=== PATIENT | female | born 2000 | race African-American/Black ===

== ENCOUNTER 2024-07-11 16:44 | Emergency (ER) | payer OTHER, SELFPAY ==
[2024-07-11 16:51] VITALS: BP 116/69
--- NOTE | 2024-07-11 17:45 | ED.GENMED ---
History of Present Illness
General
Chief Complaint: Foreign Body Removal
Source: patient and family (Patients Fiance at bedside)
Exam Limitations: none
Time Seen by Provider: 07/11/24 17:17
Nursing documentation reviewed up to this point in time: agreed with
History of Present Illness
History of Present Illness:
Patient is a 23-year-old female presenting to the emergency department for evaluation of possible vaginal foreign body. Patient states that she believes that she inserted a tampon this morning at 11 AM that she started her period. However�at 3 PM
when she went to change her tampon she was able to find the 1 that she previously placed. Patient did insert a new tampon at that time. Patient came to the emergency department for further evaluation.
Patient denies any abnormal vaginal discharge. No abdominal pain.
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
No other concerns today.
Review of Systems
Review of Systems
Allergies reviewed?: Yes
All Other Systems: ROS reviewed and negative except as documented in HPI and ROS
Phy Exam
Physical Exam
Physical Exam:
Vitals: Patient's vital signs are stable. Afebrile
General: Patient is well appearing, no acute distress
Skin: Warm and dry, no rashes or lesions
Head: Normocephalic, atraumatic
Throat: Protecting airway
Neck: Normal ROM, no cervical spine tenderness
Cardiac: Regular rate
Pulm: No apparent respiratory distress
Abdomen: Abdomen soft and nondistended
Pelvic: External genitalia normal appearing without lesions, ulcerations, or adenopathy. Speculum exam without any visualized foreign body. Bright red blood in vaginal vault. No lesions or ulcerations to vaginal wall. Normal-appearing cervix
with blood coming from os. No cervical motion tenderness. Bimanual exam without any palpable foreign bodies or abnormalities noted
Extremities: No evidence of cyanosis or edema
Neuro: Grossly intact
Psychiatric: Normal affect.
Course
Vital Signs
Initial and Last Documented VS:
Initial Vital Signs
Temp Pulse Resp BP Pulse Ox
98.0 F 75 16 116/69 96
07/11/24 16:51 07/11/24 16:51 07/11/24 16:51 07/11/24 16:51 07/11/24 16:51
Last Documented Vital Signs
Temp Pulse Resp BP Pulse Ox
98.0 F 88 18 120/70 98
07/11/24 16:51 07/11/24 19:21 07/11/24 19:21 07/11/24 19:21 07/11/24 19:21
MDM/Problems Addressed
Differential Diagnosis Includes:
Not limited to: Vaginal foreign body, etc.
MDM/Problems Addressed:
23-year-old female presents with concerns of retained tampon in vagina since this morning. She is unsure if she actually placed tampon this morning. No fevers, chills, abnormal vaginal discharge. No dizziness, lightheadedness, or shortness of
breath. Patient with stable vital signs on arrival. She is afebrile. On exam�patient is very well-appearing, in no apparent distress. She is conversational and nontoxic. Abdomen soft and nontender. Speculum exam performed without any
visualized foreign body or tampon. bright red blood visualized from cervical os and in vaginal vault. No other abnormal findings. Bimanual exam was also performed without any palpable foreign bodies. I suspect at this point that either tampon was
never inserted or it fell out without patient knowing. Patient does already have appointment scheduled with [employer]ATOR tomorrow for removal of Nexplanon. She will follow-up with them tomorrow for repeat pelvic exam if needed. Return precautions
discussed. Case discussed with attending physician. Patient stable for discharge.
Chronic conditions affecting care:
N/A
Acute Exacerbation and/or Progression of Chronic Illness:
N/A
*Pulse Oximetry
Patient hypoxic: no
*EKG
Interpreted by ED Provider?: NA
*Lead Systems Architect Interpretation
Rate: Lead Systems Architect- N/A
*Critical Care Note
Total Time (30-74mins, 75-104mins- exclusive of procedures): Not Applicable
ED Attending Note
-
Portions of this chart may have been created with voice recognition software.� Occasional wrong word or��sound alike� substitutions may have occurred due to the inherent limitations of voice recognition software.
Discharge Plan
Departure
Patient Disposition: Home (Routine Discharge)
Date of Disposition: 07/11/24
Time of Disposition: 18:27
Patient with high blood pressure during this ER visit?: No
Condition: Good
Covid-19: Not Applicable
Discharge Problem:
Retained tampon not found on examination
Instructions: Vaginal Foreign Body
Referrals:
Natalie Lopez, DO [Family Provider] -
Activity Restrictions/Additional Instructions:
RETURN TO THE EMERGENCY DEPARTMENT WITH ANY FEVERS, ABNORMAL VAGINAL DISCHARGE, PELVIC PAIN, WORSENING IN CURRENT SYMPTOMS, OR ANY OTHER CONCERNS
-As discussed there was no tampon visualized on pelvic examination today
-You should follow-up with your OBGYN as scheduled tomorrow for further evaluation/management.
Monitor your symptoms closely and return to the emergency department with any acute worsening/new symptoms, or any signs of infection
Interventions
Interventions:
*Risk Screen - Suicide Last Done: 07/11/24 16:51
*General Assessment Last Done: 07/11/24 16:51
*Neglect/Abuse Screening Last Done: 07/11/24 17:19
*ED COVID-19 Vaccine History Last Done: 07/11/24 16:51
*Nursing Disposition Last Done: 07/11/24 19:21
Discharge Date and Time
Discharge Date/Time: 07/11/24 19:22
Print Language: [place] IRISH
[2024-07-11 19:21] VITALS: BP 120/70
== END 2024-07-11 19:22 | disposition home or self-care (01) ==
LOC: EMR 16:44
PROVIDERS: EMERGENCY PHYSICIAN Student in an Organized Health Care Education/Training Program; FAMILY PHYSICIAN Family Medicine
DX: T19.2XXA Foreign body in vulva and vagina, initial encounter (principal); W44.8XXA Other foreign body entering into or through a natural orifice, initial encounter
CPT/HCPCS: 99282

== ENCOUNTER 2024-07-14 22:51 | Emergency (ER) | payer OTHER, SELFPAY ==
[2024-07-14 22:53] VITALS: BP 148/97
[2024-07-15] MEDS: ZOFRAN ODT (ORALLY DISINTEGRATING) 4 MG PO (00:08)
[2024-07-15] MEDS: NSS 1000 IV (01:54)
[2024-07-15 02:30] LABS: % Basophils 0.3 % (0-2); % Eosinophils 0.3 % (0-6); % Immature Granulocytes 0.4 % (0-0.5); % Lymphocytes 6.6 % (20.5-51.1); % Monocytes 5.2 % (1.7-9.3); % Neutrophils 87.2 % (42.2-75.2); Absolute Basophils 0.1 10^3/uL (0-0.2); Absolute Eosinophils 0.1 10^3/uL (0-0.7); Absolute Immature Granulocytes 0.1 10^3/uL (0-0.05); Absolute Lymphocytes 1.2 10^3/uL (1.2-3.4); Absolute Monocytes 0.9 10^3/uL (0.1-0.6); Absolute Neutrophils 15.6 10^3/uL (1.4-6.5); Hematocrit 38.3 % (37.0-47.0); Hemoglobin 12.2 g/dL (12.0-16.0); Mean Corp Hgb Conc. 31.9 g/dL (33.0-37.0); Mean Corpuscular Hgb 26.4 pg (27.0-31.0); Mean Corpuscular Volume 82.9 fL (81.0-99.0); Mean Platelet Volume 10.2 fL (7.4-10.4); Nucleated Red Blood Cells % 0 %; Platelet Count 494 10^3/uL (130-400); Red Blood Cell Count 4.62 10^6/uL (4.20-5.40); Red Cell Dist. Width 14.1 % (11.5-14.5); White Blood Cell Count 17.9 10^3/uL (4.8-10.8)
[2024-07-15 02:51] LABS: COVID-19 Antigen Negative (Negative)
--- NOTE | 2024-07-15 02:51 | ED.GENMED ---
History of Present Illness
<Avelina Woods NP - Last Filed: 07/15/24 15:09>
General
Chief Complaint: Abdominal Symptoms
Source: patient
Exam Limitations: none
Time Seen by Provider: 07/15/24 01:19
Nursing documentation reviewed up to this point in time: agreed with
History of Present Illness
History of Present Illness:
Patient to ED with complaint of diffuse abd. pain. Symptoms started today. Reports n/v/d. Brought to ED by boyfriend for eval. Deniers fever/chills.
Past History
<Avelina Woods NP - Last Filed: 07/15/24 15:09>
Past History
ED Past Medical History: None
ED Past Surgical History: None
Review of Systems
<Avelina Woods NP - Last Filed: 07/15/24 15:09>
Review of Systems
Allergies reviewed?: Yes
All Other Systems: ROS reviewed and negative except as documented in HPI and ROS
Skin: Reports no symptoms
Neurological: Reports no symptoms
Psychiatric: Reports no symptoms
Phy Exam
<Avelina Woods NP - Last Filed: 07/15/24 15:09>
General Physical Exam
General Presentation: moderate distress
General age: appears stated age
General Skin: warm and dry
General Habitus: normal
General Mental: alert
Cardiovascular Exam
Cardiovascular Exam: regular rate/rhythm and no edema
Pulmonary Exam
Pulmonary Exam: no respiratory distress and chest non tender
Gastrointestinal Exam
Gastrointestinal Exam: normal bowel sounds, soft, no organomegaly and no cva tenderness
Palpation: generalized: Moderate tenderness
Musculoskeletal Exam
Musculoskeletal Exam: full ROM and neuro vasc intact
Skin Exam
Skin Exam: normal color, warm/dry and no rash
Psychiatric Exam
Psychiatric Exam: normal mood/affect
Course
<Avelina Woods NP - Last Filed: 07/15/24 15:09>
Orders/Labs/Results
Orders:
Orders
07/15/24 00:06
Ondansetron Orally Disint [Zofran Odt (Orally Disintegrating)] 4 mg .ROUTE .[facility]-MED ONE
07/15/24 00:07
Ondansetron Orally Disint [Zofran Odt (Orally Disintegrating)] 4 mg PO NOW STA
07/15/24 01:19
0.9% Sodium Chloride 1000 ml [Nss] 1,000 ml IV BOLUS
07/15/24 01:20
Test Result ONCE
07/15/24 02:22
Complete Blood Count/With Diff Urgent
Comprehensive Metabolic Panel Urgent
07/15/24 02:23
COVID-19 Antigen Urgent
Source: Nasal Swab
Influenza A+B Rapid Molecular Urgent
MP Source: Nasal Swab
Specimen Description:
07/15/24 02:39
HCG, Urine Qualitative Screen Urgent
Date Specimen was Collected: 07/15/24
Time Specimen was Collected: 02:38
Urinalysis Reflex To Culture Urgent
Date Specimen was Collected: 07/15/24
Time Specimen was Collected: 02:38
Urine Microscopic Reflex Cult Urgent
Urine Culture Urgent
MP Source: U
Specimen Description:
Date Specimen was Collected: 07/15/24
Time Specimen was Collected: 02:38
07/15/24 02:45
Iohexol [Omnipaque] See Protocol PO NOW STA
07/15/24 02:54
Ondansetron Injectable [Zofran] 4 mg IV NOW STA
07/15/24 03:49
CT Abd/pelvis W Iv Cont Urgent
Comment:
Reason For Exam: n/v, abd pain
07/15/24 05:03
Trimethobenzamide [Tigan] 200 mg IM NOW STA
07/15/24 05:51
Ketorolac [Toradol] 15 mg IV NOW STA
Abnormal Lab Results
07/15/24 07/15/24
02:22 02:39
WBC 17.9 H 10^3/uL
(4.8-10.8)
MCH 26.4 L pg
(27.0-31.0)
MCHC 31.9 L g/dL
(33.0-37.0)
Plt Count 494 H 10^3/uL
(130-400)
Abs Immat Gran (auto) 0.1 H 10^3/uL
(0-0.05)
Absolute Neuts (auto) 15.6 H 10^3/uL
(1.4-6.5)
Absolute Monos (auto) 0.9 H 10^3/uL
(0.1-0.6)
Neutrophils % 87.2 H %
(42.2-75.2)
Lymphocytes % 6.6 L %
(20.5-51.1)
Glucose 105 H mg/dl
(70-99)
Ur Occult Blood Reflex 3+ A
(Negative)
Urine Bacteria (Reflex) Many A
(Negative)
07/15/24 02:22
07/15/24 02:22
Vital Signs
Initial and Last Documented VS:
Initial Vital Signs
Temp Pulse Resp BP Pulse Ox
98.2 F 115 20 148/97 98
07/14/24 22:53 07/14/24 22:53 07/14/24 22:53 07/14/24 22:53 07/14/24 22:53
Last Documented Vital Signs
Temp Pulse Resp BP Pulse Ox
99.5 F 86 20 128/89 97
07/15/24 03:13 07/15/24 05:26 07/15/24 05:26 07/15/24 05:26 07/15/24 05:26
<Francois Sweet, DO - Last Filed: 07/15/24 06:05>
Orders/Labs/Results
Orders:
Orders
07/15/24 00:06
Ondansetron Orally Disint [Zofran Odt (Orally Disintegrating)] 4 mg .ROUTE .[facility] [place]-MED ONE
07/15/24 00:07
Ondansetron Orally Disint [Zofran Odt (Orally Disintegrating)] 4 mg PO NOW STA
07/15/24 01:19
0.9% Sodium Chloride 1000 ml [Nss] 1,000 ml IV BOLUS
07/15/24 01:20
Test Result ONCE
07/15/24 02:22
Complete Blood Count/With Diff Urgent
Comprehensive Metabolic Panel Urgent
07/15/24 02:23
COVID-19 Antigen Urgent
Source: Nasal Swab
Influenza A+B Rapid Molecular Urgent
MP Source: Nasal Swab
Specimen Description:
07/15/24 02:39
HCG, Urine Qualitative Screen Urgent
Date Specimen was Collected: 07/15/24
Time Specimen was Collected: 02:38
Urinalysis Reflex To Culture Urgent
Date Specimen was Collected: 07/15/24
Time Specimen was Collected: 02:38
Urine Microscopic Reflex Cult Urgent
Urine Culture Urgent
MP Source: U
Specimen Description:
Date Specimen was Collected: 07/15/24
Time Specimen was Collected: 02:38
07/15/24 02:45
Iohexol [Omnipaque] See Protocol PO NOW STA
07/15/24 02:54
Ondansetron Injectable [Zofran] 4 mg IV NOW STA
07/15/24 03:49
CT Abd/pelvis W Iv Cont Urgent
Comment:
Reason For Exam: n/v, abd pain
07/15/24 05:03
Trimethobenzamide [Tigan] 200 mg IM NOW STA
07/15/24 05:51
Ketorolac [Toradol] 15 mg IV NOW STA
Abnormal Lab Results
07/15/24 07/15/24
02:22 02:39
WBC 17.9 H 10^3/uL
(4.8-10.8)
MCH 26.4 L pg
(27.0-31.0)
MCHC 31.9 L g/dL
(33.0-37.0)
Plt Count 494 H 10^3/uL
(130-400)
Abs Immat Gran (auto) 0.1 H 10^3/uL
(0-0.05)
Absolute Neuts (auto) 15.6 H 10^3/uL
(1.4-6.5)
Absolute Monos (auto) 0.9 H 10^3/uL
(0.1-0.6)
Neutrophils % 87.2 H %
(42.2-75.2)
Lymphocytes % 6.6 L %
(20.5-51.1)
Glucose 105 H mg/dl
(70-99)
Ur Occult Blood Reflex 3+ A
(Negative)
Urine Bacteria (Reflex) Many A
(Negative)
07/15/24 02:22
07/15/24 02:22
Vital Signs
Initial and Last Documented VS:
Initial Vital Signs
Temp Pulse Resp BP Pulse Ox
98.2 F 115 20 148/97 98
07/14/24 22:53 07/14/24 22:53 07/14/24 22:53 07/14/24 22:53 07/14/24 22:53
Last Documented Vital Signs
Temp Pulse Resp BP Pulse Ox
99.5 F 86 20 128/89 97
07/15/24 03:13 07/15/24 05:26 07/15/24 05:26 07/15/24 05:26 07/15/24 05:26
<Francois Sweet DO - Last Filed: 07/15/24 06:05>
*Radiology
Radiology exam reviewed: radiology read reviewed (CT abdomen pelvis show enteritis and colitis)
*Pulse Oximetry
Patient hypoxic: no
*Critical Care Note
Total Time (30-74mins, 75-104mins- exclusive of procedures): Not Applicable
ED Attending Note
<Avelina Woods OIL WELL ENGINEER - Last Filed: 07/15/24 15:09>
-
Portions of this chart may have been created with voice recognition software.� Occasional wrong word or��sound alike� substitutions may have occurred due to the inherent limitations of voice recognition software.
<Francois Sweet, - Last Filed: 07/15/24 06:05>
ED Attending Note
Patient seen and examined by attending physician: Yes
ED Attending Note:
I reviewed and agree with history and treatment plan by Avelina Woods. My exam revealed 23-year-old female in no acute distress. Intermittent nausea and vomiting. Improved after IM Tigan. Suspect viral cause. CT abdomen pelvis consistent with
viral cause.
Discharge Plan
Departure
Patient Disposition: Home (Routine Discharge)
Date of Disposition: 07/15/24
Time of Disposition: 06:03
Patient with high blood pressure during this ER visit?: Yes
Condition: Good
Discharge Problem:
Gastroenteritis
Instructions: Diarrhea in teens and adults, Nausea and Vomiting, Adult (DC), BLOOD PRESSURE
Prescriptions:
New
promethazine 25 mg tablet
25 mg PO TID PRN (Reason: nausea and vomiting) Qty: 10 0RF
No Action
dextroamphetamine-amphetamine [Adderall] 10 mg Tablet
10 mg PO DAILY
Lexapro
15 mg PO DAILY
Interventions
Interventions:
*Risk Screen - Suicide Last Done: 07/15/24 06:20
*General Assessment Last Done: 07/15/24 03:00
*Neglect/Abuse Screening Last Done: 07/15/24 03:00
ED- Fall Risk Assessment Last Done: 07/15/24 03:00
*ED COVID-19 Vaccine History Last Done: 07/15/24 03:00
*Nursing Disposition Last Done: 07/15/24 06:20
IC-Aojiqg-Diuqqrmlfz Assessment Last Done: 07/15/24 03:00
Discharge Date and Time
Discharge Date/Time: 07/15/24 06:20
Print Language: [id number]
[2024-07-15 02:52] LABS: HCG, Urine Qualitative Screen Negative
[2024-07-15 02:56] LABS: ALT (SGPT) 14 U/L (0-35); AST (SGOT) 20 U/L (14-36); Albumin 4.3 g/dl (3.5-5.0); Alkaline Phosphatase 107 U/L (38-126); Blood Urea Nitrogen 10 mg/dl (7-17); Calcium 9.3 mg/dl (8.4-10.2); Carbon Dioxide 23 mmol/L (22-30); Chloride 104 mmol/L (98-107); Glucose 105 mg/dl (70-99); Potassium 4.3 mmol/L (3.5-5.1); Sodium 138 mmol/L (135-145); Total Bilirubin 0.4 mg/dl (0.2-1.3); Total Protein 7.3 g/dl (6.3-8.2); eGFR > 60.00
[2024-07-15 03:04] VITALS: BP 130/74
[2024-07-15] MEDS: ZOFRAN 4 MG IV (03:10)
[2024-07-15] MEDS: TIGAN 200 MG IM (05:19)
[2024-07-15 05:26] VITALS: BP 128/89
[2024-07-15] MEDS: TORADOL 15 MG IV (06:19)
[2024-07-15 06:38] LABS: Urine Albumin Trace (Neg - Trace); Urine Bilirubin Negative (Negative); Urine Character Very Cloudy (Clear); Urine Color Yellow; Urine Glucose Negative (Negative); Urine Ketone Negative (Negative); Urine Leukocyte Negative (Negative); Urine Nitrite Negative (Negative); Urine Occult Blood 3+ (Negative); Urine Specific Gravity 1.025 (<1.030); Urine Urobilinogen Negative (Neg - 1+)
[2024-07-15 06:50] LABS: Urine Amorphous Seen
[2024-07-15 06:52] LABS: Urine Squamous Cell >30 /LPF (Few)
[2024-07-15 06:53] LABS: Urine Bacteria Many (Negative)
== END 2024-07-15 06:20 | disposition home or self-care (01) ==
LOC: EMR 22:51
PROVIDERS: Nurse Practitioner; EMERGENCY PHYSICIAN Emergency Medicine
DX: K52.9 Noninfective gastroenteritis and colitis, unspecified (principal)
CPT/HCPCS: 96374; 96375; 96372; 96361; 99284; 74177; 80053; 81003; 81015; 81025; 85025; 87086; 87502; 87811; Q9967